=== PATIENT | male | born 2000 | race African-American/Black ===

== ENCOUNTER 2025-04-26 20:30 | Emergency (ER) | payer SELFPAY ==
[~2025-04-26] VITALS: Ht 188 cm; Wt 82.2 kg
[2025-04-26 21:15] LABS: PLATELET COUNT (AUTO) 210 K/uL (152-348); RED BLOOD CELL COUNT(AUTO) 5.05 MIL/uL (4.06-5.63); RED CELL DISTRIBUTION WIDTH 13.0 % (12.1-16.2); WHITE BLOOD COUNT (AUTO) 7.7 K/uL (3.6-10.2)
[2025-04-26 21:28] LABS: CREATININE 1.0 mg/dL (0.6-1.3); SODIUM SERUM 143.0 mmol/L (136-145); UREA NITROGEN, BLOOD 15.0 mg/dL (7-18)
[2025-04-26 21:34] LABS: ASPARTATE AMINOTRANSFERASE 20.0 U/L (15-37); TOTAL PROTEIN, SERUM 8.0 g/dL (6.4-8.2)
[2025-04-26] MEDS ORDERED: HYDROCORTISONE SOD SUCCINATE 100 MG/2 ML VIAL IV ONE ×2 (21:42→21:48)
[2025-04-26] MEDS ORDERED: diphenhydrAMINE 50 MG/1 ML VIAL ONE (21:42)
[2025-04-26] MEDS ORDERED: SWABABLE VALVE TRANSFER SET EA MC ONE (22:01)
[2025-04-26] MEDS ORDERED: IOHEXOL 350 100 ML INFUS..BTL ONE (22:01)
[2025-04-26] MEDS ORDERED: IV NORMAL SALINE 250 ML IV ONE (22:01)
[2025-04-26] MEDS: diphenhydrAMINE 50 MG/1 ML VIAL IV ONE (22:08)
[2025-04-26] MEDS: HYDROCORTISONE SOD SUCCINATE 100 MG/2 ML VIAL IV ONE (22:08)
[2025-04-26] MEDS: IV NS 1000 ML 1,000 ML IV ONE (22:09)
[2025-04-27 02:00] VITALS: O2SAT 98
== END 2025-04-27 01:54 | disposition left against medical advice (07) ==
LOC: ER 20:40
DX: H53.123 Transient visual loss, bilateral (principal); R53.1 Weakness
CPT/HCPCS: 99285; 70496; 96374; 96361; 96375; 80053; 85025; 36415; 70498; 93005; 70450; J1200; J1720 ×2; Q9967; A4606; A4663